=== PATIENT | female | born 1935 | race Caucasian/White ===

== ENCOUNTER 2018-09-30 16:13 | Emergency (ER) | payer OTHER ==
[~2018-09-30] VITALS: Ht 152.4 cm; Wt 63.5 kg
[~2018-09-30 16:13] MED LIST: ARICEPT5 MG; NAMENDA10 MG; PROTONIX40 M1; ZANTAC300 MG; ZOLOFT50 MG
[2018-09-30] MEDS ORDERED: KEFLEX500 MG PO (22:45)
[2018-09-30] MEDS ORDERED: INTESTINEX680 M1 PO (22:45)
== END 2018-09-30 23:56 | disposition home or self-care (01) ==
LOC: ER 16:13
DX: R53.1 Weakness (principal); N39.0 Urinary tract infection, site not specified; B96.89 Other specified bacterial agents as the cause of diseases classified elsewhere

== ENCOUNTER 2019-04-03 13:42 | Emergency (ER) | payer OTHER ==
[~2019-04-03] VITALS: Ht 152.4 cm; Wt 45.4 kg
[~2019-04-03 13:42] MED LIST changes: +INTESTINEX680 M1 PO; +KEFLEX500 MG PO
[2019-04-03] MEDS ORDERED: ZOLOFT25 MG PO (13:47)
== END 2019-04-03 17:14 | disposition home or self-care (01) ==
LOC: ER 13:42
DX: R53.1 Weakness (principal); G30.8 Other Alzheimer's disease; F02.80 Dementia in other diseases classified elsewhere, unspecified severity, without behavioral disturbance, psychotic disturbance, mood disturbance, and anxiety; J11.1 Influenza due to unidentified influenza virus with other respiratory manifestations

== ENCOUNTER 2019-04-07 12:49 | Emergency (ER) | payer OTHER ==
[~2019-04-07] VITALS: Ht 152.4 cm; Wt 59.0 kg
[~2019-04-07 12:49] MED LIST changes: +ZOLOFT25 MG PO
== END 2019-04-07 21:48 | disposition home or self-care (01) ==
LOC: ER 12:49
DX: J22 Unspecified acute lower respiratory infection (principal); R63.0 Anorexia